=== PATIENT | female | born 1995 | race Caucasian/White ===

== ENCOUNTER 2018-08-06 04:00 | Inpatient (IN) ==
[2018-08-06] MEDS ORDERED: Famotidine 20 MG/2 ML VIAL IVP PRN (05:24)
[2018-08-06] MEDS ORDERED: Metoclopramide 10 MG/2 ML VIAL IVP PRN (05:24)
[2018-08-06] MEDS ORDERED: miSOPROStol 25 MCG TABLET VG PRN (05:24)
[2018-08-06] MEDS ORDERED: Naloxone 0.4 MG/ML INJ IVP PRN (05:24)
[2018-08-06] MEDS ORDERED: Ringers Solution, Lactated 1,000 ML IVC SCH (05:30)
[2018-08-06] MEDS ORDERED: Penicillin G Potassium 5,000,000 UNIT in 0.9 % Sodium Chloride Mini Bag 100 ML IVPB ONE (05:40)
[2018-08-06 05:47] LABS: Basophils % 0.6 %; Eosinophils # 0.1 K/mcL (0.0-0.6); Eosinophils % 1.4 %; Hematocrit 29.1 % (35.3-44.9); Hemoglobin 9.3 g/dL (11.5-15.4); Lymphocytes # 2.1 K/mcL (0.6-4.6); Lymphocytes % 28.6 %; Mean Corpuscular Hemoglobin 28.9 pg (28.0-33.3); Mean Corpuscular Volume 90.4 fL (83.0-100.0); Mean Platelet Volume 13.6 fL (9.4-12.4); Monocytes # 0.5 K/mcL (0.0-1.3); Monocytes % 6.6 %; Neutrophils # 4.5 K/mcL (1.6-8.9); Nucleated Red Blood Cells 0.3 /100 WBC (0); Platelet Count 207 K/mcL (140-400); Red Blood Count 3.22 M/mcL (3.82-4.97); Segmented Neutrophils % 61.8 %
[2018-08-06 05:56] LABS: Amphetamine Screen,Urine Negative ng/mL (Cutoff=1000); Barbiturate Screen,Urine Negative ng/mL (Cutoff=200); Benzodiazepines Screen,Urine Negative ng/mL (Cutoff=200); Cannabinoid Screen,Urine Negative ng/mL (Cutoff = 50); Cocaine Screen,Urine Negative ng/mL (Cutoff= 300); Opiate Screen,Urine Negative ng/mL (Cutoff=300); Phencyclidine Screen,Urine Negative ng/mL (Cutoff=25)
--- NOTE | 2018-08-06 09:13 | Anesthesia Evaluation PreOp ---
Date of Encounter: 08/06/18 Time of Encounter: 08:36 - Past History Planned Operation: del, 36wk induction d/t cholestasis Cardiac History: Denies any Significant Hx Pulmonary History: Denies Any Significant HX DIRECTOR SECURITY RISK MANAGEMENT History: Denies Any Significant HX Other Medical History: Other (cholestasis, scoliosis chronic back pain (no treatments given), right sciatica reported down to knee no motor weekness reported, denies any dependent radiculopathy,) Anesthesia History: No Prior Anesthetic Complications, Past Anesthesia (denies any family hx.) Alcohol Use: none Drug use: none Medications and Allergies Vit Calc,Iron,Folic [ Vitamins] 1 each PO DAILY #30 tablet 02/23/18 [Rx] Allergy/AdvReac Type Severity Reaction Status Date / Time No Known Allergies Allergy Verified 08/06/18 05:22 Anesthesia Results - Labs 08/06/18 05:10 Anesthesia Exam - HEENT Pupil (Motor): Pupils equal Mallampati: II Teeth: Normal Oral Opening: Greater than 3 - DIRECTOR SECURITY RISK MANAGEMENT LOC: Oriented DIRECTOR SECURITY RISK MANAGEMENT Motor: Normal RUE, Normal LUE, Normal RLE, Normal LLE, Normal Face DIRECTOR SECURITY RISK MANAGEMENT Sensory: Normal: RUE, LUE, RLE, LLE, Face - Cardiac Rhythm: Regular Murmur: None - Pulmonary Breath Sounds: bilateral Clear Respiratory Effort: Symmetrical Anesthesia Assess/Plan ASA Score: 2 Level of consciousness: Cooperative, Oriented Anesthetic Plan: General, Spinal, Epidural Monitoring Plan: Standard Monitors Recovery Plan: PACU
--- NOTE | 2018-08-06 09:19 | OB/GYN History & Physical ---
Date of Encounter: 08/06/18 Time of Encounter: 09:13 Assessment and Plan (1) 36 weeks gestation of Current visit: Yes Status: Acute 23 y/o @ 36+2 weeks, cholestasis of , GBS neg Plan: Cytotec given @ 5:40AM, will evaluate 4hrs after for cat balloon, ok for epidural if she desires, anticipate History of Present Illness HPI: Ms. Champion is a 23 year old female @ 36+2 weeks who presents to L&D for IOL for cholestasis of . She does not report LOF, VB or ctxs, feels good FM, she is on Ursodiol and her weekly bile acids were 41, 27 and 81. She has been on twice weekly NSTs. MFM consulted and the recommendation was to deliver @ 36 weeks. She is GBS neg. Past Med Surg Social Fam HX - Past Medical History Medical history: no medical history Psychiatric history: no psych history - Past Surgical History Surgical History: no surgical history - Social History Smoking Status: Never smoker Smokeless Tobacco Status: No Alcohol use: none Drug use: none - Family History Father Adopted: No Living Status: Still Living Hx Family Cardiac Disorders: Yes (hypertension) Hx Family Respiratory Disorders: No Hx Family Cancer: No Hx Family GI Disorders: No Hx Family Genitourinary Disorders: No Hx Family Endocrine Disorder: No Hx Family Musculoskeletal Disorders: No Hx Family Neuromuscular Disorders: No Hx Family Neurologic Disorders: No Hx Family HEENT Disorders: No Hx Family Autoimmune Disorders: No Hx Family Reproductive Disorders: No Hx Family Psychosocial Disorders: No Hx Family Medical Disorders: No Obstetrical History - Pregnancies : 1 Para: 0 Medications and Allergies Vit Calc,Iron,Folic [ Vitamins] 1 each PO DAILY #30 tablet 02/23/18 [Rx] Allergy/AdvReac Type Severity Reaction Status Date / Time No Known Allergies Allergy Verified 08/06/18 05:22 Review of System OB All systems PM: reviewed and no additional remarkable complaints except as s tated Exam - Constitutional Constitutional: no acute distress - HEENT HEENT: PERRL - Neck Neck exam: full ROM - Lungs Respiratory exam: CTAB - Cardiovascular Cardiovascular exam: RRR - Abdomen Abdomen: Present: gravid - Cervix Dilation: 0 Results Result Diagrams: 08/06/18 05:10 Abnormal lab results RBC 3.22 M/mcL (3.82-4.97) L 08/06/18 05:10 Hgb 9.3 g/dL (11.5-15.4) L 08/06/18 05:10 Hct 29.1 % (35.3-44.9) L 08/06/18 05:10 MPV 13.6 fL (9.4-12.4) H 08/06/18 05:10 Nucleated RBCs/100 WBC 0.3 /100 WBC (0) H 08/06/18 05:10 All other labs normal. - VTE Reasons for not Prescribing Prophylaxis: Treatment not Indicated - Low risk for VTE
[2018-08-06] MEDS ORDERED: Epidural Premix (fent/bupiv) 110 ML EP SCH (09:30)
[2018-08-06] MEDS ORDERED: Lidocaine -MPF 2% 5 ML VIAL ONE (09:41)
[2018-08-06] MEDS: Penicillin G Potassium 2,500,000 UNIT in 0.9 % Sodium Chloride 100 ML IVPB SCH ×3 (10:22→18:51)
--- NOTE | 2018-08-06 10:58 | OB Labor Progress Note ---
Date of Encounter: 08/06/18 Time of Encounter: 10:55 Labor Progress Note - Subjective Subjective: Patient resting without complaint at this time. - Vital Signs Vital Signs: WNL - Cervix Cervix: 1/75/-2 - Heart Tones Heart Tones: FHR 140 bpm, moderate variability, +15x15 accels, no decels. - [place]: irregular - Interventions Interventions: SVE Cervical cat placed without difficulty, 60 ML sterile water instilled. - Plan Plan: Continue induction as planned Gently tug to cat hourly AROM when appropriate Anticipate
[2018-08-06] MEDS: *HR* Nalbuphine 10 MG/ML AMPUL IVP PRN ×2 (16:20→19:08)
--- NOTE | 2018-08-06 16:43 | OB Labor Progress Note ---
Date of Encounter: 08/06/18 Time of Encounter: 16:42 Labor Progress Note - Subjective Subjective: patient is doing well, - Vital Signs Vital Signs: VSS - Cervix Cervix: cat still in - Heart Tones Heart Tones: CAT 1 - Plan Plan: cont monitoring strip, anticipate
--- NOTE | 2018-08-06 20:25 | OB Labor Progress Note ---
Date of Encounter: 08/06/18 Time of Encounter: 20:23 Labor Progress Note - Subjective Subjective: Patient coping well with contractions at this time. - Vital Signs Vital Signs: WNL - Cervix Cervix: 5/75/-1 - Heart Tones Heart Tones: FHR 135 bpm, moderate variability, +15x15 accels, no decels - Angostura Angostura: q 2-3 minutes - Interventions Interventions: SVE AROM for large amount of light meconium stained fluid. - Plan Plan: Continue labor induction May have epidural if and when patient desires. Anticipate
[2018-08-06] MEDS ORDERED: Oxytocin 20 units/ LR 1000 mL 20 UNIT/1,000 ML BAG IVC SCH (20:45)
--- NOTE | 2018-08-07 00:45 | OB Labor Progress Note ---
Date of Encounter: 08/07/18 Time of Encounter: 00:42 Labor Progress Note - Subjective Subjective: Patient coping well with contractions. Denies need for epidural at this time. - Vital Signs Vital Signs: WNL, AFebrile - temp 98.1 - Cervix Cervix: 5/75/-1 - Heart Tones Heart Tones: FHR 130 bpm, moderate variability, +15x15 accels, no decels. - [place]: Irregular contractions - Interventions Interventions: SVE - Plan Physician notified: Yes Physician notified details: Dr. Neumann updated on SVE Plan: Begin Pitocin augmentation Patient may have epidural if/when she desires. Anticipate
[2018-08-07] MEDS ORDERED: Ondansetron 4 MG/2 ML VIAL IVP PRN ×2 (03:25→14:50)
[2018-08-07] MEDS ORDERED: Ondansetron 4 MG/2 ML VIAL ONE ×3 (03:26→13:03)
--- NOTE | 2018-08-07 03:36 | Anesthesia Procedures ---
Addendum entered and electronically signed by Gary Toscano CRNA 08/07/18 13:12: Converted to primary section for failure to progress. In OR at 1256 for epidural conversion. Original Note: Date of Encounter: 08/07/18 Time of Encounter: 03:08 Procedures: Anesthesia - Epidural/Spinal Patient ID/Chart reviewed: Yes Patient examined: Yes OB Eval: : 1 OB Eval: Contractions: Non-stressed pattern Consent Obtained: Yes Supplemental Oxygen: None/Room Air Site Prep: Aseptic Technique, Sterile prep and drape, 0.5% Chlorhexidine/Alcohol Patient position: upright Local Anesthetic: Lidocaine 1% Amount of Local Anesthetic used: 2 Touhy Needle Gauge: 18 Touhy Needle Depth (cm): 5 Catheter Depth at Skin (cm): 10 Test Dose (1.5% Lido + Epi): Volume given (mls): 4 Test Dose Result: Negative Loading Dose: Other: 12ml from solution Loading Dose Administered: Thru Catheter Infusion Med: 0.125% Bupivacaine w/ 2 mcg/ml Fentanyl Infusion Rate (mls/hr): [address]: Tegaderm, Tape Interspace Used: L3-L4 Loss of Resistance (CLAUDINE): Yes (saline) Blood: No CSF: No Paresthesia: No Procedure: vss though out procedure, FHR per RN's stable
--- NOTE | 2018-08-07 04:47 | OB Labor Progress Note ---
Date of Encounter: 08/07/18 Time of Encounter: 04:45 Labor Progress Note - Subjective Subjective: patient is comfortable s/p epidural - Vital Signs Vital Signs: VSS - Cervix Cervix: 5cm - Heart Tones Heart Tones: CAT 1 - Plan Plan: patient AROM'ed @ 20:18, on 12 of pitocin, cont pit, anticipate
--- NOTE | 2018-08-07 07:07 | OB Labor Progress Note ---
Date of Encounter: 08/07/18 Time of Encounter: 07:04 Labor Progress Note - Subjective Subjective: Patient sleeping, completely comfortable with epidural in place. - Vital Signs Vital Signs: WNL - Cervix Cervix: 5/75/-1 - Heart Tones Heart Tones: Category 1 - [place]: Irregular Difficult to monitor contractions. - Interventions Interventions: SVE Position change - Plan Physician notified: Yes Physician notified details: Dr. Neumann updated on SVE Plan: Continue Pitocin induction Frequent position changes with peanut ball in place Consider IUPC placement Continue GBS prophylaxis Anticipate
--- NOTE | 2018-08-07 10:58 | OB Labor Progress Note ---
Date of Encounter: 08/07/18 Time of Encounter: 10:56 Labor Progress Note - Subjective Subjective: patient is doing well - Vital Signs Vital Signs: VSS - Cervix Cervix: 5cm - Heart Tones Heart Tones: CAT 1 - Plan Plan: The patient has now been 5cm for almost 18hrs despite pitocin and AROM, I talked to her about doing a for failure to progress, Consents signed, Anesthesia called
[2018-08-07] MEDS ORDERED: Chloroprocaine/PF 20 ML VIAL INFILT ONE (12:28)
[2018-08-07] MEDS ORDERED: CeFAZolin Premix DUPLEX 2,000 MG/50 ML BAG IVPB ONE (12:34)
[2018-08-07] MEDS ORDERED: *HR* Morphine Sulfate/PF 10 MG/10 ML AMPUL ONE (12:45)
[2018-08-07] MEDS ORDERED: *HR* Oxytocin 10 UNIT/ML VIAL IM ONE (12:45)
[2018-08-07] MEDS ORDERED: Lidocaine/EPI 1:200k 2% PF 20 ML VIAL ONE (13:30)
[2018-08-07] MEDS ORDERED: *HR* OxyCODONE/APAP 5/325 TABLET PO PRN (14:50)
[2018-08-07] MEDS ORDERED: *HR* Morphine 2 MG/ML SYRINGE IVP PRN (14:50)
[2018-08-07] MEDS ORDERED: Ibuprofen 400 MG TABLET PO PRN (14:50)
[2018-08-07] MEDS ORDERED: Oxytocin 20 units/ LR 1000 mL 20 UNIT/1,000 ML BAG IVC SCH (14:50)
[2018-08-07] MEDS ORDERED: Metoclopramide 10 MG/2 ML VIAL IVP PRN (14:50)
[2018-08-07] MEDS ORDERED: Ringers Solution, Lactated 1,000 ML IVC SCH (14:50)
[2018-08-07] MEDS ORDERED: Sennosides 8.6 MG TABLET PO PRN (14:50)
[2018-08-07] MEDS ORDERED: *HR* HYDROmorphone (PF) 1 MG/ML SYRINGE IVP PRN (14:50)
[2018-08-07] MEDS ORDERED: Naloxone 0.4 MG/ML INJ IVP PRN (14:50)
[2018-08-07] MEDS ORDERED: Simethicone 80 MG TAB.CHEW PO PRN (14:50)
[2018-08-07] MEDS ORDERED: Oxytocin 20 units/ LR 1000 mL 20 UNIT/1,000 ML BAG IVC ONE (15:00)
--- NOTE | 2018-08-07 16:23 | Anesthesia Evaluation Post Op ---
Date of Encounter: 08/07/18 Time of Encounter: 16:22 - Lungs Lungs: Clear Ascult./Percussion - Airway Airway: Non-obstructed - Cardiovascular Regular Rate, Baseline Rhythm - Mental Status Mental Status: Alert & Oriented, Answers Appropriately - Pain Pain Scale: 4 Pain Scale used: Numeric (1 - 10) - Nausea Vomiting Nausea Vomiting: Not Present - Hydration Hydration: NPO, Benavides catheter - Discharge PostOp Status: Transfer Patient to floor
--- NOTE | 2018-08-07 16:56 | OB/GYN Procedure Note ---
Section - Date of procedure: 08/07/18 Preop diagnosis: arrest of dilation Post-op diagnosis: same Procedure: primary low transverse Surgeon: Rajinder Frederick Blood Loss: 500 Was there an assignment desk assistant present: Yes Jewelry Enameler: Braxton Guillaume Anesthesiologist: Roxanna Juarez Supervisor Acoustical Tile Carpenters: Gary Toscano Anesthesia Type: Epidural section complications: none Disposition: L&D Recovery Room Specimens: Placenta, Cord blood - (s) A Infant Delivery Date: 08/07/18 Delivery Time: 13:22 Presentation: vertex Gender: Female Gram Weight: 2.815 kg at 1 minute: 7 at 5 minutes: 8 Placenta: complete extraction Cord: 3 umbilical vessels - Narrative Narrative: The patient was brought to the operating room with satisfactory epidural anesthesia. The abdomen was prepped and draped in a sterile fashion. A Pfannenstiel incision was made and carried sharply down to the level of the fascia. The fascia was incised transversely. The fascia was dissected away from the underlying rectus muscles. With sharp and blunt dissection, the rectus muscles were divided in the midline. The peritoneum was entered bluntly. The incision was carried horizontally with scissors. A bladder retractor was placed to protect the bladder. A transverse incision was made across the lower uterine segment. The incision was manually extended. The infant's head was pulled up and delivered as were the shoulders and body. The mouth and oropharynx were suctioned. The cord was clamped and cut. The was passed off to the waiting nurse in satisfactory condition. APGARS 7/8, weight 2815g. The placenta was extracted completely and found to be intact. The uterus was explored and found to be empty. The uterus was delivered through the abdominal incision and massaged vigorously. Intravenous Pitocin was administered. The margins of the uterine incision were closed primarily with a running locking stitch of 0 Vicryl with adequate hemostasis. Secondary running locking stitch was placed for extra strength to the wound. The uterus was returned to its proper anatomic position in the abdomen. The fascia was closed with a simple running stitch of 0 vicryl. The skin was closed with running subcuticular of 4-0 vicryl. The patient was brought to the recovery room in satisfactory condition.
[2018-08-07] MEDS: Ibuprofen 600 MG TABLET PO PRN (22:48)
[2018-08-08] MEDS: Prenatal Vit/FA 1 EACH TABLET PO SCH (07:20)
[2018-08-08] MEDS: *HR* OxyCODONE/APAP 5/325 TABLET PO PRN ×3 (07:20→18:45)
[2018-08-08 08:06] LABS: Basophils # 0.1 K/mcL (0.0-0.2); Basophils % 0.3 %; Eosinophils % 0.2 %; Hematocrit 31.4 % (35.3-44.9); Immature Granulocytes % 0.6 % (0-4); Lymphocytes # 1.3 K/mcL (0.6-4.6); Lymphocytes % 6.6 %; Mean Corpuscular HGB Conc 31.8 g/dL (31.6-35.5); Mean Corpuscular Hemoglobin 29.1 pg (28.0-33.3); Mean Corpuscular Volume 91.3 fL (83.0-100.0); Monocytes # 0.8 K/mcL (0.0-1.3); Platelet Count 236 K/mcL (140-400); Red Blood Count 3.44 M/mcL (3.82-4.97); Red Cell Distribution Width 13.7 % (11.5-14.5); Segmented Neutrophils % 88.3 %
[2018-08-08 08:26] LABS: Neutrophils # 17.5 K/mcL (1.6-8.9)
--- NOTE | 2018-08-08 11:44 | OB/GYN Progress Note ---
Date of Encounter: 08/08/18 Time of Encounter: 11:43 - Assessment and Plan (1) Status post Current Visit: Yes Status: Acute Pt meeting day 1 Post-op milestones. Active bowel sounds, passing flatus, no BM yet. in nursery, encouraged Mom to ambulate and spend time with infant in nursery. Mom desires to breastfeed, encouraged her to begin pumping. Anticipate discharge on PPD 2-3. (2) Cholestasis during Current Visit: Yes Status: Acute Qualifiers: Trimester: third trimester Qualified Code(s): O26.613 - Liver and biliary tract disorders in , third trimester; K83.1 - Obstruction of bile duct Subjective - Subjective Interval history: Adequate urine output via cat. Patient reports: appetite normal, pain well controlled, ambulating normally : in NICU Objective - Vital Signs Latest vital signs: Vital Signs Temp Pulse Resp BP Pulse Ox 08/08/18 07:30 98.6 F 105 16 104/64 96 08/08/18 04:02 98.6 F 74 14 109/73 98 08/07/18 23:37 98.7 F 72 14 121/78 96 08/07/18 19:28 98.7 F 74 15 126/80 97 08/07/18 18:30 98.8 F 75 16 121/66 08/07/18 17:30 98.4 F 78 16 124/74 08/07/18 17:28 98.4 F 78 16 124/74 08/07/18 17:00 97.6 F 76 14 123/74 96 08/07/18 16:30 98.4 F 78 16 128/66 97 Intake and Output 08/07/18 08/08/18 08/08/18 23:59 07:59 15:59 Intake Total 200 / 200 120 / 120 Output Total 2675 / 2675 900 / 900 Balance -2475 / -2475 -900 / -900 120 / 120 Intake: Oral 200 / 200 120 / 120 Output: Catheter 2675 / 2675 900 / 900 Other: Meal Breakfast Percent of Meal Consumed 100% Weight 67.8 kg 66.043 kg Patient Weight 08/08/18 23:59 Weight 66.043 kg - Exam Lungs: bilateral: normal Chest: Normal S1, Normal S2 Extremities: Present: normal. Absent: tenderness, edema Abdomen: Present: soft Incision: Present: dry, dressed Fundal Height: 1 (U/1) - Labs Labs: Laboratory Results - last 24 hr 08/08/18 07:37 WBC 19.8 H D RBC 3.44 L Hgb 10.0 L Hct 31.4 L MCV 91.3 MCH 29.1 MCHC 31.8 RDW 13.7 Plt Count 236 MPV 13.0 H Immature Gran % 0.6 Seg Neutrophils % 88.3 Lymphocytes % 6.6 Monocytes % 4.0 Eosinophils % 0.2 Basophils % 0.3 Neutrophils # 17.5 H Lymphocytes # 1.3 Monocytes # 0.8 Eosinophils # 0.0 Basophils # 0.1
[2018-08-08] MEDS: Ibuprofen 600 MG TABLET PO PRN ×2 (12:30→18:45)
[2018-08-08 15:19] LABS: Basophils % 0.1 %; Hematocrit 31.1 % (35.3-44.9); Hemoglobin 9.8 g/dL (11.5-15.4); Immature Granulocytes % 0.8 % (0-4); Lymphocytes # 1.2 K/mcL (0.6-4.6); Lymphocytes % 5.5 %; Mean Corpuscular HGB Conc 31.5 g/dL (31.6-35.5); Mean Corpuscular Hemoglobin 28.7 pg (28.0-33.3); Mean Corpuscular Volume 90.9 fL (83.0-100.0); Monocytes # 0.8 K/mcL (0.0-1.3); Monocytes % 3.4 %; Neutrophils # 20.1 K/mcL (1.6-8.9); Platelet Count 287 K/mcL (140-400); Red Blood Count 3.42 M/mcL (3.82-4.97); Red Cell Distribution Width 13.6 % (11.5-14.5); Segmented Neutrophils % 90.2 %
[2018-08-08] MEDS ORDERED: MOM Conc 10 ML UD.LIQ PO ONE (17:10)
[2018-08-08] MEDS: Simethicone 80 MG TAB.CHEW PO SCH ×3 (17:30→23:22)
[2018-08-08 17:36] LABS: Potassium 3.8 mEq/L (3.5-5.1)
[2018-08-08 21:17] LABS: Basophils % 0.1 %; Eosinophils % 0.1 %; Hematocrit 26.3 % (35.3-44.9); Hemoglobin 8.6 g/dL (11.5-15.4); Immature Granulocytes % 0.9 % (0-4); Lymphocytes # 1.6 K/mcL (0.6-4.6); Mean Corpuscular HGB Conc 32.7 g/dL (31.6-35.5); Mean Corpuscular Hemoglobin 29.3 pg (28.0-33.3); Mean Corpuscular Volume 89.5 fL (83.0-100.0); Mean Platelet Volume 13.2 fL (9.4-12.4); Monocytes % 5.1 %; Neutrophils # 17.6 K/mcL (1.6-8.9); Platelet Count 240 K/mcL (140-400); Red Blood Count 2.94 M/mcL (3.82-4.97); Red Cell Distribution Width 13.7 % (11.5-14.5); Segmented Neutrophils % 85.8 %
--- NOTE | 2018-08-08 21:23 | OB Labor Progress Note ---
Date of Encounter: 08/08/18 Time of Encounter: 21:20 Labor Progress Note - Subjective Subjective: Pt resting in bed. Pain controlled by Epidural. - Cervix Cervix: 4-5cm/
[2018-08-09] MEDS: Ibuprofen 600 MG TABLET PO PRN (04:04)
[2018-08-09] MEDS: Simethicone 80 MG TAB.CHEW PO SCH ×2 (04:05→08:55)
--- NOTE | 2018-08-09 06:36 | Event Note ---
Date of Encounter: 08/08/18 Time of Encounter: 12:30 CNM called to bedside due to pt c/o chest pain. Pt reports pressure type pain in upper chest near clavicles bilaterally. She denies any other associated symptoms. Apical pulse tachycardic but regular rhythm. Lungs CTA bilaterally. Abdomen distended and tympanic. EKG ordered at this time. Suspect pt needs to ambulate to move intestinal gas that is the likely cause of her pain. Drs. Cook and Colby notified of pt's complaints, WBC's on CBC from this am and one time temp 100.1. The doctors agree with proceeding with repeat CBC. No other interventions at this time. Dr. Bowman to evaluate patient this afternoon.
[2018-08-09 08:12] LABS: Basophils % 0.2 %; Eosinophils # 0.1 K/mcL (0.0-0.6); Eosinophils % 0.3 %; Hematocrit 24.9 % (35.3-44.9); Hemoglobin 7.9 g/dL (11.5-15.4); Immature Granulocytes % 0.6 % (0-4); Lymphocytes % 10.5 %; Mean Corpuscular HGB Conc 31.7 g/dL (31.6-35.5); Mean Corpuscular Hemoglobin 28.6 pg (28.0-33.3); Mean Corpuscular Volume 90.2 fL (83.0-100.0); Mean Platelet Volume 12.5 fL (9.4-12.4); Monocytes # 0.8 K/mcL (0.0-1.3); Monocytes % 4.1 %; Neutrophils # 16.3 K/mcL (1.6-8.9); Platelet Count 286 K/mcL (140-400); Red Blood Count 2.76 M/mcL (3.82-4.97); Segmented Neutrophils % 84.3 %
[2018-08-09 08:20] VITALS: BP 124/77
[2018-08-09] MEDS: Prenatal Vit/FA 1 EACH TABLET PO SCH (08:55)
--- NOTE | 2018-08-09 09:15 | Discharge Summary ---
Date of Encounter: 08/09/18 Time of Encounter: 09:13 - Discharge Diagnosis (1) Breast feeding status of mother Priority: Secondary Status: Acute Comments: support prn (2) Status post Priority: Primary Status: Acute Comments: Continue routine /postop care discharge to guest-infant in SCN - Discharge Medications Prescriptions: Ibuprofen [Motrin] 600 mg PO Q6HR PRN #60 tablet PRN Reason: Mild to Moderate Pain OxyCODONE/APAP 5/325 [Percocet 5/325 MG] 1 each PO Q6HR PRN 5 Days #28 tablet PRN Reason: Severe Pain Azithromycin [Zithromax] 500 mg PO DAILY 5 Days #10 tablet Breast Pump [BREAST PUMP] 1 each .ROUTE AD #1 each cephALEXin [Keflex] 1,000 mg PO BID 5 Days #20 capsule Docusate [Colace] 100 mg PO BID #30 capsule Home Medications: Vit Calc,Iron,Folic [ Vitamins] 1 each PO DAILY #30 tablet 02/23/18 [Rx] Azithromycin [Zithromax] 500 mg PO DAILY 5 Days #10 tablet 08/09/18 [Rx] Breast Pump [BREAST PUMP] 1 each .ROUTE AD #1 each 08/09/18 [Rx] Docusate [Colace] 100 mg PO BID #30 capsule 08/09/18 [Rx] Ibuprofen [Motrin] 600 mg PO Q6HR PRN #60 tablet 08/09/18 [Rx] OxyCODONE/APAP 5/325 [Percocet 5/325 MG] 1 each PO Q6HR PRN 5 Days #28 tablet 08/09/18 [Rx] cephALEXin [Keflex] 1,000 mg PO BID 5 Days #20 capsule 08/09/18 [Rx] Allergies/Adverse Reactions: Allergy/AdvReac Type Severity Reaction Status Date / Time No Known Allergies Allergy Verified 08/06/18 05:22 Data Procedures and tests throughout hospitalization: Laboratory Tests 08/06/18 08/06/18 08/08/18 05:10 05:10 07:37 WBC 7.3 19.8 H D RBC 3.22 L 3.44 L Hgb 9.3 L 10.0 L Hct 29.1 L 31.4 L MCV 90.4 91.3 MCH 28.9 29.1 MCHC 32.0 31.8 RDW 13.0 13.7 Plt Count 207 236 MPV 13.6 H 13.0 H Immature Gran % 1.0 0.6 Seg Neutrophils % 61.8 88.3 Lymphocytes % 28.6 6.6 Monocytes % 6.6 4.0 Eosinophils % 1.4 0.2 Basophils % 0.6 0.3 Neutrophils # 4.5 17.5 H Lymphocytes # 2.1 1.3 Monocytes # 0.5 0.8 Eosinophils # 0.1 0.0 Basophils # 0.0 0.1 Nucleated RBCs/100 WBC 0.3 H Sodium Potassium Chloride Carbon Dioxide Urine Opiates Screen Negative Ur Barbiturates Screen Negative Ur Phencyclidine Scrn Negative Ur Amphetamines Screen Negative U Benzodiazepines Scrn Negative Urine Cocaine Screen Negative U Marijuana (THC) Screen Negative Ur Drug Screen Interp See Below 08/08/18 08/08/18 08/08/18 07:38 14:54 20:45 WBC 22.4 H 20.5 H RBC 3.42 L 2.94 L Hgb 9.8 L 8.6 L Hct 31.1 L 26.3 L MCV 90.9 89.5 MCH 28.7 29.3 MCHC 31.5 L 32.7 RDW 13.6 13.7 Plt Count 287 240 MPV 13.0 H 13.2 H Immature Gran % 0.8 0.9 Seg Neutrophils % 90.2 85.8 Lymphocytes % 5.5 8.0 Monocytes % 3.4 5.1 Eosinophils % 0.0 0.1 Basophils % 0.1 0.1 Neutrophils # 20.1 H 17.6 H Lymphocytes # 1.2 1.6 Monocytes # 0.8 1.0 Eosinophils # 0.0 0.0 Basophils # 0.0 0.0 Nucleated RBCs/100 WBC Sodium 132 L Potassium 3.8 Chloride 99 Carbon Dioxide 21 L Urine Opiates Screen Ur Barbiturates Screen Ur Phencyclidine Scrn Ur Amphetamines Screen U Benzodiazepines Scrn Urine Cocaine Screen U Marijuana (THC) Screen Ur Drug Screen Interp 08/09/18 07:56 WBC 19.3 H RBC 2.76 L Hgb 7.9 L Hct 24.9 L MCV 90.2 MCH 28.6 MCHC 31.7 RDW 14.0 Plt Count 286 MPV 12.5 H Immature Gran % 0.6 Seg Neutrophils % 84.3 Lymphocytes % 10.5 Monocytes % 4.1 Eosinophils % 0.3 Basophils % 0.2 Neutrophils # 16.3 H Lymphocytes # 2.0 Monocytes # 0.8 Eosinophils # 0.1 Basophils # 0.0 Nucleated RBCs/100 WBC Sodium Potassium Chloride Carbon Dioxide Urine Opiates Screen Ur Barbiturates Screen Ur Phencyclidine Scrn Ur Amphetamines Screen U Benzodiazepines Scrn Urine Cocaine Screen U Marijuana (THC) Screen Ur Drug Screen Interp Labs on day of discharge: Labs from last 24 hours 08/09/18 08/08/18 08/08/18 07:56 20:45 14:54 WBC 19.3 H 20.5 H 22.4 H RBC 2.76 L 2.94 L 3.42 L Hgb 7.9 L 8.6 L 9.8 L Hct 24.9 L 26.3 L 31.1 L MCV 90.2 89.5 90.9 MCH 28.6 29.3 28.7 MCHC 31.7 32.7 31.5 L RDW 14.0 13.7 13.6 Plt Count 286 240 287 MPV 12.5 H 13.2 H 13.0 H Immature Gran % 0.6 0.9 0.8 Seg Neutrophils % 84.3 85.8 90.2 Lymphocytes % 10.5 8.0 5.5 Monocytes % 4.1 5.1 3.4 Eosinophils % 0.3 0.1 0.0 Basophils % 0.2 0.1 0.1 Neutrophils # 16.3 H 17.6 H 20.1 H Lymphocytes # 2.0 1.6 1.2 Monocytes # 0.8 1.0 0.8 Eosinophils # 0.1 0.0 0.0 Basophils # 0.0 0.0 0.0 Sodium Potassium Chloride Carbon Dioxide 08/08/18 07:38 WBC RBC Hgb Hct MCV MCH MCHC RDW Plt Count MPV Immature Gran % Seg Neutrophils % Lymphocytes % Monocytes % Eosinophils % Basophils % Neutrophils # Lymphocytes # Monocytes # Eosinophils # Basophils # Sodium 132 L Potassium 3.8 Chloride 99 Carbon Dioxide 21 L Date of admission: 08/06/18 04:17 Primary care physician: PCP NONE Discharging clinician: Trinh Beverly Anticipated date of discharge: 08/09/18 - Patient Status Disposition: Home, Self-Care Condition: Good Functional capacity at discharge: independent ambulation - Discharge Instructions Follow Up With: NONE,PCP [Primary Care Provider] - Nnoli,Ebelechukw Chintan, MD [Partnered Physician] - - Diet and Activity Activity: increase activity as tolerated Diet: regular diet Hospital Course Procedures: [facility] report reviewed by RHONDA Winston Reason for admission: induction of labor Delivery: section Episiotomy: none Laceration: none Other procedures: none complications: none Discharge diagnosis: IUP at term delivered [place] baby: female (breast/bottle feeding) Time Attestation: Total time spent providing and/or coordinating discharge services: Time Spent: Less than 30 minutes - VTE Reasons for not Prescribing Prophylaxis: Treatment not Indicated - Low risk for VTE Documentation of Mechanical Device: Intermittent pneumatic compression device Exam - Constitutional Vitals: Temp Pulse Resp BP Pulse Ox 98.6 F 115 14 124/77 97 08/09/18 08:19 08/09/18 08:19 08/09/18 08:19 08/09/18 08:19 08/09/18 08:19 General appearance IM: A&O X 3, pleasant, answers questions appropriately - Respiratory Respiratory exam: Present: CTAB - Cardiovascular Cardiovascular exam IM: Present: RRR, +S1, +S2 - GI/Abdominal GI/Abdominal exam IM: normal bowel sounds Incision: normal, dry, intact, other (steri strips) - Uterine Tone: Firm Uterus Position: 2 Fingers Below Umbilicus, Midline - Extremities Exam Extremities exam IM: Present: full ROM, normal capillary refill, normal inspection - Neurological Exam Neurological exam: alert, oriented X3, reflexes normal
[2018-08-09] MEDS ORDERED: Measles/Mumps/Rubella Vacc 0.5 ML VIAL SQ ONE (09:57)
--- NOTE | 2018-08-09 12:49 | Electrocardiograph Report ---
[address] [address] Test Date: 2018-08-08 Pat Name: Shweta Champion Department: 101 Room: [facility] Gender: F Md Pediatric Allergist: : 1995 Requested By: [id number] Order Number: [id number] Reading MD: Carolee Almazan Measurements Intervals [place] Rate: 134 P: 59 HI: 128 QRS: 33 QRSD: 78 T: 40 QT: 331 QTc: 410 Interpretive Statements SINUS TACHYCARDIA POSSIBLE LEFT ATRIAL ENLARGEMENT RSR' in V1 or V2 probably normal variant Electronically Signed On 08-09-2018 12:48:34 EST by Carolee Almazan
== END 2018-08-09 10:25 | disposition home or self-care (01) | DRG 786 ==
LOC: 1NENULAB 04:17 → 1NENUOBS 08-07 16:38
PROVIDERS: ADMIT Advanced Practice Midwife; ATTEND Advanced Practice Midwife